=== PATIENT | male | born 1960 | race Caucasian/White ===

== ENCOUNTER → 2018-03-22 14:27 | Outpatient (CLI) | payer OTHER, SELFPAY ==
--- NOTE | 2018-03-22 14:32 | US_ITS ---
STUDY: ULTRASOUND OF THE RIGHT NECK REASON FOR EXAM: Male, 57 years old. Right neck lump. TECHNIQUE: Ultrasound evaluation of the right neck lump was performed with real-time and static argueta-scale imaging. COMPARISON: None. FINDINGS: 2 small solid lymph nodes in the right neck. These nodes measure 1.0 x 0.4 x 0.2 cm and 1.1 x 1.0 x 0.4 cm respectively. US/Head/Neck Soft Tissue IMPRESSION: Right neck lump corresponds to 2 small solid lymph nodes measuring 1.0 x 0.4 x 0.2 cm and 1.1 x 1.0 x 0.4 cm respectively. Electronically Signed: Mathew Johnson MD at 12:09 EST , Service support ,
== END ==
PROVIDERS: Family Provider Internal Medicine; PCP Internal Medicine; Referring Provider Internal Medicine; Visit Provider Internal Medicine
DX: R22.1 Localized swelling, mass and lump, neck (principal)
CPT/HCPCS: 76536

== ENCOUNTER → 2019-09-02 16:30 | Outpatient (CLI) | payer OTHER, SELFPAY ==
[2016-08-06 11:06] VITALS: BMI 36.6
== END ==
PROVIDERS: PCP Internal Medicine; Referring Provider Nurse Practitioner; Visit Provider Nurse Practitioner
DX: Z01.818 Encounter for other preprocedural examination (principal); Z87.442 Personal history of urinary calculi
CPT/HCPCS: 36415; 85610; 87086

== ENCOUNTER 2021-02-18 12:59 | Outpatient (CLI) | payer OTHER, SELFPAY ==
[2021-02-18] MEDS: 0.9% Saline Lock 10 ML Syringe IV (13:20)
[2021-02-18 13:21] VITALS: BP 138/95; PULSE 72; RESP 16; TEMP 36.7; O2SAT 95; BMI 36.6
[2021-02-18 13:55] VITALS: BP 137/93; PULSE 69; RESP 16; TEMP 36.6; O2SAT 98
[2021-02-18 14:52] VITALS: BP 138/95; PULSE 70; RESP 16; TEMP 36.7; O2SAT 100
== END 2021-02-18 14:55 | disposition home or self-care (01) ==
LOC: MS3OUT 12:59 → MS3 13:00
PROVIDERS: PCP Internal Medicine; Referring Provider Nurse Practitioner Adult Health; Visit Provider Nurse Practitioner Adult Health
DX: Z23 Encounter for immunization (principal); U07.1 COVID-19; J45.909 Unspecified asthma, uncomplicated
CPT/HCPCS: J7050; M0245; Q0245; A4216